=== PATIENT | male | born 1970 | race Caucasian/White ===

== ENCOUNTER 2017-07-18 14:11 | Emergency (ER) | payer OTHER ==
[~2017-07-18] VITALS: Ht 175.3 cm; Wt 87.0 kg
[2017-07-18 14:40] VITALS: BP 186/123; PULSE 86; RESP 16; TEMP 98.9; O2SAT 98
[2017-07-18] MEDS ORDERED: cloNIDine HCL 0.1 MG TAB PO ONE (15:45)
[2017-07-18] MEDS ORDERED: KETOROLAC TROMETHAMINE 60 MG/2 ML (IM) VIAL IM ONE (15:45)
[2017-07-18] MEDS ORDERED: ACETAMINOPHEN/HYDROcodone 325 MG/5 MG TAB PO ONE (15:45)
--- NOTE | 2017-07-18 16:00 | RADRPT ---
EXAM DATE/TIME: 07/18/2017 15:50 [facility] COMPARISON: No previous studies available for comparison. INDICATIONS : Patient states left lower leg pain after leg rolling out and hearing a snap. MEDICAL HISTORY : None. SURGICAL HISTORY : None. ENCOUNTER: Initial ACUITY: 1 day PAIN SCORE: 8/10 LOCATION: Left proximal lower leg. FINDINGS: The bony mineralization is within normal limits. There are arthritic changes within the patellofemora l joint. Note is made of a small flabella. No acute fracture or destructive lesion is seen. CONCLUSION: 1. Arthritic changes at the patellofemoral joint. No acute fracture. Jeffrey García MD on July 18, 2017 at 15:56 Board Certified Radiologist. This report was verified electronically.
--- NOTE | 2017-07-18 16:11 | PD ---
HPI Chief Complaint: Musculoskeletal Complaint Time Seen by Provider: 15:18 Travel History International Travel<30 days: No Contact w/Intl Traveler<30days: No Traveled to known affect area: No History of Present Illness HPI 46 year-old male presents to the emergency room for evaluation of left calf pain and swelling after injuring it yesterday. Patient started after a sudden pushoff the ground. He felt a pop in his left calf and fell his muscle roll up his leg. He has been able to ambulate since then but with significant pain. Pain is worsened with range of motion of his foot. States as long as he keeps his leg completely straight, his pain is well controlled. His friend applied athletic tape which did not improve his symptoms. He also elevated it last night without improvement. He took ibuprofen without any relief in symptoms. Patient denies any chronic medical conditions or daily medications. [facility] Social History Alcohol Use: No Tobacco Use: No Substance Use: No Allergies-Medications (Allergen,Severity, Reaction): Coded Allergies: No Known Allergies (Unverified , 07/18/17) Review of Systems Except as stated in HPI: all other systems reviewed are Neg Physical Exam Narrative GENERAL: Well-nourished, well-developed male in no acute distress. Afebrile. Ambulatory. SKIN: Focused skin assessment warm/dry. No significant erythema or ecchymosis. HEAD: Normocephalic. EYES: No scleral icterus. No injection or drainage. NECK: Supple, trachea midline. No JVD or lymphadenopathy. CARDIOVASCULAR: Regular rate and rhythm without murmurs, gallops, or rubs. RESPIRATORY: Breath sounds equal bilaterally. No accessory muscle use. MUSCULOSKELETAL: No cyanosis. There is significant edema and tenderness to palpation of the left calf. Achilles tendon intact; negative Amaya test. 2 + dorsalis pedis pulse the left foot. Compartment soft. Data Data Last Documented VS Vital Signs Date Time Temp Pulse Resp B/P (MAP) Pulse Ox O2 Delivery O2 Flow Rate FiO2 07/18/17 16:42 88 18 170/86 (114) 99 Room Air 07/18/17 14:40 98.9 Orders Orders Tibia/Fibula (Ap/Lat) (07/18/17 ) Crutches (07/18/17 15:37) Splint Or Brace Apply/Monitor (07/18/17 15:37) Ketorolac Inj (Toradol Inj) (07/18/17 15:45) Acetamin-Hydrocod 325-5 Mg ([place] 5-325 (07/18/17 15:45) Clonidine (Catapres) (07/18/17 15:45) Ed Discharge Order (07/18/17 16:50) [facility] Medical Decision Making Medical Screen Exam Complete: Yes Emergency Medical Condition: Yes Medical Record Reviewed: Yes Differential Diagnosis Strain, sprain, contusion, hematoma, fracture Narrative Course 46-year-old male presents to the emergency room for evaluation of left calf muscle pain and swelling after injuring it last night. Patient had a sudden pushoff the ground with associated sudden tearing sensation and pop. He applied ice and his friend applied athletic tape but he reports significant pain and swelling. Physical exam reveals significant edema and tenderness to palpation of the left calf. Negative Amaya test. Achilles tendon is palpable and intact. Left lower extremity is neurovascularly intact with 2+ dorsalis pedis pulse. Compartments soft. X-ray of the tibia and fibula show no acute bony ab normality. Patient likely has gastrocnemius muscle strain. He was placed in a posterior short leg splint and discharged with crutches. Told to follow-up with orthopedic surgeon within a week for recheck return for worsening symptoms. He understands and agrees to plan. Diagnosis Primary Impression: Gastrocnemius muscle tear Qualified Codes: S86.112A - Strain of other muscle(s) and tendon(s) of posterior muscle group at lower leg level, left leg, initial encounter Referrals: Cecilia Lopez MD Additional Instructions: Keep leg elevated above heart to reduce swelling and risk for compartment syndrome. Take Tylenol Motrin for pain. Follow-up with an orthopedic surgeon. Return for worsening symptoms. Disposition: 01 DISCHARGE HOME Condition: Stable Malena Wang Jul 18, 2017 16:11
[2017-07-18 16:42] VITALS: BP 170/86; PULSE 88; RESP 18; O2SAT 99
== END 2017-07-18 17:01 | disposition home or self-care (01) ==
LOC: NEPK 14:11
DX: S86.112A Strain of other muscle(s) and tendon(s) of posterior muscle group at lower leg level, left leg, initial encounter (principal); X50.0XXA Overexertion from strenuous movement or load, initial encounter
CPT/HCPCS: 29515; 73590; 96372; 99283; E0113; J1885

== ENCOUNTER → 2017-08-02 | Outpatient (CLI) | payer OTHER ==
--- NOTE | 2017-08-02 14:15 | RADRPT ---
EXAM DATE/TIME: 08/02/2017 13:24 [facility] COMPARISON: TIBIA/FIBULA LEFT (AP/LAT), July 18, 2017, 15:50. INDICATIONS : Left achilles rupture. MEDICAL HISTORY : Hypertension. SURGICAL HISTORY : Rt wrist sx with plate, Rt hip/pelvis/leg sx. ENCOUNTER: Initial ACUITY: 3 weeks PAIN SCORE: 7/10 LOCATION: Left ankle and calf region. TECHNIQUE: Multiplanar, multisequence MRI examination was performed without contrast. FINDINGS: BONE/CARTILAGE: Bone marrow signal is homogeneous. Articular cartilage signal is within normal limits. TENDONS: All of the visualized tendons are intact. Specifically, the Achilles tendon appears be grossly intact . LIGAMENTS: The lateral and medial ligament complexes are intact. MISCELLANEOUS: The plantar aponeurosis is intact. The tarsal tunnel is within normal limits. CONCLUSION: 1. The Achilles tendon appears to be grossly intact. 2. Otherwise unremarkable exam for patient's age. Rashi Noel MD on August 02, 2017 at 14:11 Board Certified Radiologist. This report was verified electronically.
== END ==
LOC: HRAD 12:56
PROVIDERS: ATTEND Orthopaedic Surgery
DX: S86.012A Strain of left Achilles tendon, initial encounter (principal); X58.XXXA Exposure to other specified factors, initial encounter
CPT/HCPCS: 73721